=== PATIENT | female | born 1980 | race Caucasian/White ===

== ENCOUNTER 2016-12-26 12:21 | Emergency (ER) | payer OTHER ==
[~2016-12-26] VITALS: Ht 160 cm; Wt 60.0 kg
[2016-12-26 12:33] VITALS: Ht 160 cm; Wt 60.0 kg
[2016-12-26] MEDS ORDERED: ACETAMINOPHEN 325 MG TAB PO ONE (13:00)
[2016-12-26] MEDS ORDERED: BACITRACIN 0.9 GM OINT TOP ONE (13:00)
[2016-12-26] MEDS ORDERED: DIPHTH/TET/ACEL PERTUSS (ADULT) 0.5 ML VIAL IM* ONE (13:00)
[2016-12-26] MEDS ORDERED: BACITRACIN 0.5%/ZINC 28.35 GM OINT TOP ONE (13:30)
[2016-12-26] MEDS ORDERED: CEPH-443 PO (14:09)
[2016-12-26] MEDS ORDERED: ACET500C5 PO (14:09)
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
== END 2016-12-26 15:32 | disposition home or self-care (01) ==
LOC: FTE 12:21
DX: T22.251A Burn of second degree of right shoulder, initial encounter (principal); F17.210 Nicotine dependence, cigarettes, uncomplicated; T21.22XA Burn of second degree of abdominal wall, initial encounter; X10.0XXA Contact with hot drinks, initial encounter; Y92.89 Other specified places as the place of occurrence of the external cause; Z23 Encounter for immunization
CPT/HCPCS: 16020; 90715; Z7610; 90471

== ENCOUNTER 2016-12-28 19:24 | Emergency (ER) | payer OTHER ==
[~2016-12-28] VITALS: Wt 60.0 kg
[~2016-12-28 19:24] MED LIST: ACET500C5 PO; CEPH-443 PO
[2016-12-28] MEDS ORDERED: ONDANSETRON (ODT) 4 MG TAB ODT STA (20:13)
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
[2016-12-28] MEDS ORDERED: morphine 10 MG INJ IM ONE (20:30)
[2016-12-28] MEDS ORDERED: SILVER SULFADIAZINE 1% 25 GM CR TOP ONE (20:30)
[2016-12-28] MEDS ORDERED: HYDR-906 PO (20:34)
[2016-12-28] MEDS ORDERED: SSD1C20 TOP (20:34)
[2016-12-28] MEDS ORDERED: ONDA4TAB14 PO (20:34)
[2016-12-28 21:01] VITALS: BP 118/73; PULSE 99; RESP 20
== END 2016-12-28 21:01 | disposition home or self-care (01) ==
LOC: FTE 19:24
DX: T22.231A Burn of second degree of right upper arm, initial encounter (principal); F17.210 Nicotine dependence, cigarettes, uncomplicated; X11.8XXA Contact with other hot tap-water, initial encounter; Y92.9 Unspecified place or not applicable
CPT/HCPCS: 16020; 96372; J2270; Z7502; Z7610